=== PATIENT | female | born 2005 | race Caucasian/White ===

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

== ENCOUNTER 2023-07-15 19:28 | Observation (INO) ==
[2023-07-16 01:46] LABS: ABS Basophils 0.1 10^3/uL (0.0-0.1); ABS Monocytes 0.9 10^3/uL (0.0-0.9); ABS Neutrophils 10.6 10^3/uL (1.5-7.6); ABS Nucleated RBC 0.03 10^3/ul; Eosinophil % 0.2 %; Hematocrit 40.4 % (35-45); Lymphocyte % 14.9 %; Mean Corpuscular Hgb Conc 34.5 g/dL (31-36); Mean Corpuscular Volume 86.9 fL (80-97); Mean Platelet Volume 8.4 fL (7.5-11.2); Nucleated Red Blood Cells % 0.2 /100 WBC (0.0-0.4); Platelet Count 423 10^3/uL (150-450); Red Blood Count 4.65 10^6/uL (3.63-4.92); Red Cell Distribution Width 13.2 % (12-17); White Blood Count 13.6 10^3/uL (3.8-11.8)
[2023-07-16 02:03] LABS: ALT 39 U/L (7-52); AST 22 U/L (13-39); Albumin 4.7 g/dL (3.2-5.2); Albumin/Globulin Ratio 1.4 (1-3); Alkaline Phosphatase 88 U/L (35-149); Anion Gap 11 mmol/L (2-16); Blood Urea Nitrogen 15 mg/dL (6-24); C Reactive Protein 17.24 mg/L (<8.01); CO2 Carbon Dioxide 22 mmol/L (22-32); Calcium 9.6 mg/dL (8.6-10.3); Chloride 102 mmol/L (101-111); Creatinine, Serum 0.59 mg/dL (0.51-0.95); Globulin 3.4 g/dL (2-4); Glucose 96 mg/dL (70-100); Lipase 22 U/L (11.0-82.0); Potassium 3.8 mmol/L (3.5-5.0); Sodium 135 mmol/L (135-145); Total Protein 8.1 g/dL (6.4-8.9); eGFR CKD-EPI 132.2 (>60)
[2023-07-16] MEDS ORDERED: Lactated Ringers 1000 ml BAG 1,000 ML IV ONE (06:19)
[2023-07-16] MEDS ORDERED: Ondansetron 4 mg VIAL 2 MG/ML 2 ml VIAL IV ONE (06:19)
[2023-07-16 06:46] LABS: HCG Pregnancy < 0.60 mIU/mL
[2023-07-16] MEDS ORDERED: Iohexol 300 (CONTRAST) 10 ML SDV IV ONE (07:07)
[2023-07-16 08:45] LABS: Urine Appearance Clear; Urine Bilirubin Negative (Negative); Urine Blood Negative (Negative); Urine Color Yellow; Urine Glucose Negative (Negative); Urine Ketones 1+ (Negative); Urine Nitrite Negative (Negative); Urine Protein Negative (Negative); Urine Specific Gravity > 1.060 (1.002-1.030); Urine Urobilinogen Negative (Negative)
[2023-07-16] MEDS ORDERED: Rocuronium 50 mg VIAL 10 mg/ml 5 ml VIAL (50 mg) ONE (11:40)
[2023-07-16] MEDS ORDERED: Acetaminophen IV 1 GM/100ML 1,000 MG/100 ML BAG IV ONE (11:40)
[2023-07-16] MEDS ORDERED: ceFAZolin 2 GM PREMIX 2 GM/50 ML BAG ONE (13:56)
[2023-07-16] MEDS ORDERED: metroNIDAZOLE IV 500 MG/100ML 500 MG/100 ML BAG ONE (13:56)
[2023-07-16] MEDS ORDERED: Ondansetron 4 mg VIAL 2 MG/ML 2 ml VIAL ONE ×2 (14:45→17:19)
[2023-07-16] MEDS ORDERED: Propofol 10 MG/ML 20 ML BTL ONE (14:45)
[2023-07-16] MEDS ORDERED: Midazolam 2 mg/2 ml VIAL 1 mg/ml 2 ml VIAL (2 mg) ONE (14:45)
[2023-07-16] MEDS ORDERED: fentaNYL 100 mcg/2 ml 50 MCG/ML VIAL ONE (14:45)
[2023-07-16] MEDS ORDERED: Lidocaine 2% PF 5 ML VIAL ONE (14:45)
[2023-07-16] MEDS ORDERED: Bupivacaine 0.25% SDV 30 ML ONE (15:15)
[2023-07-16] MEDS ORDERED: HYDROmorphone 1 MG/1 ML SYRINGE IV PRN (15:45)
[2023-07-16] MEDS ORDERED: Ondansetron 4 mg VIAL 2 MG/ML 2 ml VIAL IV PRN ×2 (15:45→16:56)
[2023-07-16] MEDS ORDERED: fentaNYL 100 mcg/2 ml 50 MCG/ML VIAL IV PRN (15:45)
[2023-07-16] MEDS ORDERED: Naloxone 0.4 mg VIAL 0.4 mg/ml 1 ml VIAL IV PRN (15:45)
[2023-07-16] MEDS ORDERED: Dexamethasone IV 4 MG/ML VIAL 1 ml VIAL ONE (16:13)
[2023-07-16] MEDS ORDERED: Glycopyrrolate IV 0.2 MG/ML 1 ML VIAL ONE ×2 (16:26→16:35)
[2023-07-16] MEDS ORDERED: Neostigmine Methylsulfate 3 MG/3 ML SYRINGE ONE ×2 (16:26→16:35)
[2023-07-16] MEDS ORDERED: oxyCODONE/Acetamin 5/325 mg TAB PO PRN (16:56)
[2023-07-16] MEDS ORDERED: Lactated Ringers 1000 ml BAG 1,000 ML IV SCH (17:00)
[2023-07-17 09:32] VITALS: BP 122/74
== END 2023-07-17 13:21 | disposition home or self-care (01) ==
LOC: ED 19:28 → OR 07-16 13:57 → SSU 07-16 13:57 → OR 07-16 15:36
PROVIDERS: ADMIT Surgery; ATTEND Surgery